=== PATIENT | female | born 1985 | race Caucasian/White ===

== ENCOUNTER 2018-02-10 13:28 | Emergency (ER) | payer MEDICARE, MEDICAID ==
[~2018-02-10] VITALS: Ht 157.5 cm; Wt 77.1 kg
[~2018-02-10 13:28] MED LIST: ACET12.5 PO; AMOX250S70 PO; PRD20T PO; TYLENOL #3 ELIXIR PO
--- NOTE | 2018-02-10 14:05 | ED Upper Extremity ---
General Chief Complaint: Upper Extremity Stated Complaint: L SHOULDER PAIN Nursing Triage Note: Patient advises shoulder pain x 2 days after exercising. She advises she has tried utilizing a heat pack and tramadol without improvement in pain. Nursing Sepsis Screen: No Definite Risk Source: patient Exam Limitations: no limitations History of Present Illness Date Seen by Provider: Feb 10, 2018 Time Seen by Provider: 14:05 Allergies and Home Medications Allergies Coded Allergies: hydrocodone (Verified Adverse Reaction, Mild, Gastric upset, 07/07/15) Home Medications [Tylenol #3 Elixir] ML, 1-2 TSP PO Q4H PRN for PAIN Prescribed by: SADIA COPE on 01/20/16 1200 Past Lknbyrg-Gcnoba-Bukcau Hx Patient Social History Alcohol Use: Denies Use Recreational Drug Use: No Smoking Status: Never a Smoker Recent Foreign Travel: No Contact w/Someone Who Travel: No Recent Infectious Disease Expo: No Physical Abuse: No Sexual Abuse: No Immunizations Up To Date Tetanus Booster (TDap): More than 5yrs Seasonal Allergies Seasonal Allergies: No Surgeries History of Surgeries: Yes (RT KNEE SCOPE, RT ANKLE TENDON X2) Surgeries: Orthopedic Respiratory History of Respiratory Disorde: No Cardiovascular History of Cardiac Disorders: No Neurological History of Neurological Disord: No Neurological Disorders: Cerebral Palsy Reproductive System Hx Reproductive Disorders: No Sexually Transmitted Disease: No HIV/AIDS: No Female Reproductive Disorders: Denies Gastrointestinal History of Gastrointestinal Di: No Musculoskeletal History of Musculoskeletal Dis: No Endocrine History of Endocrine Disorders: No HEENT Loss of Vision: Bilateral Cancer History of Cancer: No Psychosocial History of Psychiatric Problem: No Suicide Risk Score: 0 Integumentary History of Skin or Integumenta: No Blood Transfusions History of Blood Disorders: No Adverse Reaction to a Blood Tr: No Family Medical History Significant Family History: No Pertinent Family Hx Physical Exam Vital Signs Vital Signs - First Documented 02/10/18 13:40 Temp 98.4 Resp 14 B/P (MAP) 120/77 (91) Pulse Ox 98 O2 Delivery Room Air Capillary Refill : Less Than 3 Seconds Progress/Results/Core Measures Results/Orders My Orders Orders - KATIE KITCHEN Shoulder, Left, 3 Views (02/10/18 13:53) Vital Signs/I&O Vital Sign - Last 12Hours 02/10/18 13:40 Temp 98.4 Resp 14 B/P (MAP) 120/77 (91) Pulse Ox 98 O2 Delivery Room Air Blood Pressure Mean: 91 Departure Impression Impression: Primary Impression: Muscle strain of left shoulder Disposition: 01 HOME, SELF-CARE Condition: Improved Departure-Patient Inst. Decision time for Depature: 15:16 Referrals: NO,LOCAL PHYSICIAN (PCP) Primary Care Physician AMOS ROLAND MD Patient Instructions: Muscle Strain (DC) Add. Discharge Instructions: All discharge instructions reviewed with patient and/or family. Voiced understanding. Medications as directed. Tylenol over the counter as directed for pain. Motrin over the counter as directed for pain. Alternate ice packs and heating pads as needed for pain and spasm. Follow-up with your family practitioner or Dr. Roland if no improvement in symptoms within the next 7-10 days. Return to the emergency department for worsened symptoms or any other concerns. Scripts Prednisone (Prednisone) 20 Mg Tab 40 MG PO DAILY, #10 TAB 0 Refills ok to crush meds Prov: KATIE KITCHEN 02/10/18 Cyclobenzaprine HCl (Cyclobenzaprine HCl) 5 Mg Tablet 5 MG PO Q8H Y for SPASMS, #14 TAB 0 Refills Prov: KATIE KITCHEN 02/10/18 KATIE KITCHEN Feb 10, 2018 14:05
--- NOTE | 2018-02-10 14:25 | Diagnostic Imaging Report ---
Indication: Overuse injury. Left shoulder pain. Findings: Three views of the left shoulder shows no fracture, dislocation or other abnormality. Impression: Normal left shoulder. Dictated by: Dictated on workstation # [id number]
[2018-02-10] MEDS ORDERED: CYCL5TAB PO (15:20)
[2018-02-10] MEDS ORDERED: PRD20T PO (15:20)
[2018-02-10 15:47] VITALS: BP 120/77
== END 2018-02-10 15:46 | disposition home or self-care (01) ==
LOC: EDUNIT# 13:28 → ER 13:30
DX: S46.912A Strain of unspecified muscle, fascia and tendon at shoulder and upper arm level, left arm, initial encounter (principal); Z88.5 Allergy status to narcotic agent; X50.0XXA Overexertion from strenuous movement or load, initial encounter
CPT/HCPCS: 73030

== ENCOUNTER 2018-07-24 08:40 | Emergency (ER) | payer MEDICARE, MEDICAID ==
[~2018-07-24] VITALS: Ht 157.5 cm; Wt 72.6 kg
[~2018-07-24 08:40] MED LIST changes: +CYCL5TAB PO
--- NOTE | 2018-07-24 08:56 | ED Lower Extremity ---
General Stated Complaint: RT KNEE PAIN Source: patient, family Exam Limitations: no limitations History of Present Illness Date Seen by Provider: Jul 24, 2018 Time Seen by Provider: 08:45 Initial Comments Patient presents to ER by private conveyance with chief complaint that she is having some continued right knee pain. She tripped couple weeks ago on a hose and at [employer] parking lot and skinned up her knee. She's been cleaning 3 times a day with hydrogen peroxide and applying Neosporin. She states she's been using ibuprofen 100 mg tablets 5 those 2 or 3 times a day and says that did not help. She has a hard time taking pills that she uses chewable children' s version. She also is noting some swelling in her ankle for the past couple days. She has no history of clots nor does she take any medicines or follow with a primary care doctor. She has a history of CP. She's not having any shortness of breath chest pain cough hemoptysis, fevers or chills. Does not take any other medicines. She would like some tramadol for her pain. Allergies and Home Medications Allergies Coded Allergies: hydrocodone (Verified Adverse Reaction, Mild, Gastric upset, 07/07/15) Home Medications No Active Prescriptions or Reported Meds Patient Home Medication List Home Medication List Reviewed: Yes Review of Systems Constitutional: No chills, No diaphoresis, No fever, No malaise EENTM: No ear discharge, No ear pain Respiratory: cough (occ dry); No hemoptysis, No short of breath, No wheezing Cardiovascular: No chest pain, No palpitations Gastrointestinal: No abdominal pain, No constipation, No nausea, No vomiting Genitourinary: No discharge, No dysuria Past Dobmtqe-Lbbuuf-Vgnlxc Hx Patient Social History Alcohol Use: Denies Use Recreational Drug Use: No Smoking Status: Never a Smoker 2nd Hand Smoke Exposure: No Recent Foreign Travel: No Contact w/Someone Who Travel: No Recent Hopitalizations: No Immunizations Up To Date Tetanus Booster (TDap): Less than 5yrs Seasonal Allergies Seasonal Allergies: No Past Medical History Surgeries: Yes (RT KNEE SCOPE, RT ANKLE TENDON ) Orthopedic Respiratory: No Cardiac: No Neurological: Yes Cerebral Palsy Reproductive Disorders: No Female Reproductive Disorders: Denies Sexually Transmitted Disease: No HIV/AIDS: No Genitourinary: No Gastrointestinal: No Musculoskeletal: No Endocrine: No HEENT: No Loss of Vision: Bilateral Cancer: No Psychosocial: No Integumentary: No Blood Disorders: No Adverse Reaction/Blood Tranf: No Family Medical History No Pertinent Family Hx Physical Exam Vital Signs Vital Signs - First Documented 07/24/18 08:55 Temp 97.5 Pulse 106 Resp 18 B/P (MAP) 137/81 (99) Pulse Ox 98 Capillary Refill : Height, Weight, BMI Height: 5'2.00" Weight: 170lbs. 0.0oz. 77.448973ue; 25.96 BMI Method:Stated General Appearance: WD/WN, no apparent distress HEENT: PERRL/EOMI, pharynx normal Neck: non-tender, normal inspection Cardiovascular: normal peripheral pulses, regular rate, rhythm Respiratory: lungs clear, normal breath sounds, no respiratory distress, no accessory muscle use Gastrointestinal: non tender, soft Knees: left knee non-tender, left knee normal inspection; bilateral knee normal range of motion; left knee no evidence of injury; bilateral knee bone tenderness; right knee joint effusion (mild), right knee pain, right knee soft tissue tenderness, right knee swelling, right knee other (normal Ervin, anterior, posterior drawer test. The MCL and LCL ligaments are tight, normal examination. No evidence of acute ligament disruption.) Ankles: bilateral ankle non-tender; left ankle normal inspection; bilateral ankle normal range of motion; left ankle no evidence of injury; right ankle swelling Feet: bilateral foot non-tender, bilateral foot normal inspection, bilateral foot normal range of motion, bilateral foot no evidence of injury Neurologic/Psychiatric: no motor/sensory deficits, normal mood/affect, oriented x 3 Skin: normal color, warm/dry Progress/Results/Core Measures Results/Orders Lab Results Laboratory Tests Test 07/24/18 09:09 Range/Units White Blood Count 9.8 4.3-11.0 10^3/uL Red Blood Count 4.34 L 4.35-5.85 10^6/uL Hemoglobin 13.3 11.5-16.0 G/DL Hematocrit 40 35-52 % Mean Corpuscular Volume 92 80-99 FL Mean Corpuscular Hemoglobin 31 25-34 PG Mean Corpuscular Hemoglobin Concent 33 32-36 G/DL Red Cell Distribution Width 12.9 10.0-14.5 % Platelet Count 274 130-400 10^3/uL Mean Platelet Volume 10.7 H 7.4-10.4 FL Neutrophils (%) (Auto) 69 42-75 % Lymphocytes (%) (Auto) 21 12-44 % Monocytes (%) (Auto) 7 0-12 % Eosinophils (%) (Auto) 3 0-10 % Basophils (%) (Auto) 0 0-10 % Neutrophils # (Auto) 6.8 1.8-7.8 X 10^3 Lymphocytes # (Auto) 2.1 1.0-4.0 X 10^3 Monocytes # (Auto) 0.7 0.0-1.0 X 10^3 Eosinophils # (Auto) 0.3 0.0-0.3 10^3/uL Basophils # (Auto) 0.0 0.0-0.1 10^3/uL Sodium Level 138 135-145 MMOL/L Potassium Level 3.4 L 3.6-5.0 MMOL/L Chloride Level 107 98-107 MMOL/L Carbon Dioxide Level 23 21-32 MMOL/L Anion Gap 8 5-14 MMOL/L Blood Urea Nitrogen 12 7-18 MG/DL Creatinine 0.62 0.60-1.30 MG/DL Estimat Glomerular Filtration Rate > 60 BUN/Creatinine Ratio 19 Glucose Level 86 70-105 MG/DL Calcium Level 9.2 8.5-10.1 MG/DL Corrected Calcium 9.2 8.5-10.1 MG/DL Total Bilirubin 0.5 0.1-1.0 MG/DL Aspartate Amino Transf (AST/SGOT) 15 5-34 U/L Alanine Aminotransferase (ALT/SGPT) 24 0-55 U/L Alkaline Phosphatase 83 40-136 U/L C-Reactive Protein High Sensitivity 1.97 H 0.00-0.50 MG/DL Total Protein 6.7 6.4-8.2 GM/DL Albumin 4.0 3.2-4.5 GM/DL Serum Test, Qualitative NEGATIVE NEGATIVE My Orders Orders - RON KEENE Cbc With Automated Diff (07/24/18 08:54) Comprehensive Metabolic Panel (07/24/18 08:54) Hs C Reactive Protein (07/24/18 08:54) Hcg,Qualitative Serum (07/24/18 08:54) Vital Signs/I&O 07/24/18 08:55 Temp 97.5 Pulse 106 Resp 18 B/P (MAP) 137/81 (99) Pulse Ox 98 Progress Progress Note : Time: 09:55 Progress Note No evidence of cellulitis or DVT. Looks like normal healing wound and knee injury. She is able to walk on it. She has been counseled on appropriate wound care. We'll wrap her ankle and instruct her in rice therapy. Offered her pain medicine and she has requested just to get the prescription for tramadol outpatient. We have instructed her that we will send her Naprosyn but will be okay with a couple tramadol for breakthrough pain. Departure Impression Primary Impression: Sprain of knee Qualified Codes: S83.91XD - Sprain of unspecified site of right knee, subsequent encounter Disposition: HOME, SELF-CARE Condition: Stable Departure-Patient Inst. Decision time for Depature: 10:03 Referrals: NO,LOCAL PHYSICIAN (PCP/Family) Primary Care Physician Patient Instructions: Knee Sprain (DC) Add. Discharge Instructions: Rest the knee and keep it elevated above the level of your heart. Use the compression dressing for swelling. Stay active. Do the stretching exercises as demonstrated. Use Tylenol 1000 mg every 8 hours as needed. Start taking the Naprosyn 1 capsules twice a day for the next week or 2 for pain. If you have breakthrough pain not controlled with these then you can use the tramadol 1 tablet every 6 hours as needed. Follow up with primary care doctor if you're not seeing improvement in the next 2 weeks for referral to physical therapy. For your cough you can seed cone picker some Zyrtec/cetirizine and take one tablet daily for the next 2 weeks. Scripts Tramadol HCl (Tramadol HCl) 50 Mg Tablet 50 MG PO Q6H PRN for PAIN, #10 TAB 0 Refills Prov: RON KEENE 07/24/18 Naproxen (Naprosyn) 500 Mg Tablet 500 MG PO BID, #30 TAB 0 Refills Prov: RON KEENE 07/24/18 RON KEENE Jul 24, 2018 08:56
[2018-07-24 09:21] LABS: BASOPHILS % (AUTO) 0 % (0-10); EOSINOPHILS # (AUTO) 0.3 10^3/uL (0.0-0.3); EOSINOPHILS % (AUTO) 3 % (0-10); HEMATOCRIT 40 % (35-52); HEMOGLOBIN 13.3 G/DL (11.5-16.0); LYMPHOCYTES # (AUTO) 2.1 X 10^3 (1.0-4.0); LYMPHOCYTES % (AUTO) 21 % (12-44); MEAN CORPUSCULAR HEMOGLOBIN 31 PG (25-34); MEAN CORPUSCULAR HGB CONC 33 G/DL (32-36); MEAN CORPUSCULAR VOLUME 92 FL (80-99); MEAN PLATELET VOLUME 10.7 FL (7.4-10.4); MONOCYTES # (AUTO) 0.7 X 10^3 (0.0-1.0); MONOCYTES % (AUTO) 7 % (0-12); NEUTROPHILS # (AUTO) 6.8 X 10^3 (1.8-7.8); NEUTROPHILS % (AUTO) 69 % (42-75); PLATELET COUNT 274 10^3/uL (130-400); RED BLOOD COUNT 4.34 10^6/uL (4.35-5.85); RED CELL DISTRIBUTION WIDTH 12.9 % (10.0-14.5); WHITE BLOOD COUNT 9.8 10^3/uL (4.3-11.0)
--- OUTSIDE RECORDS SUMMARY | 2018-07-24 09:33 | XMS REPORT | Continuity of Care Document ---
Author Author [facility] Organization [facility] Address Unknown Phone Unavailable Allergies Active Description Code Type Severity Reaction Onset Reported/Identified Relationship to Patient Clinical Status Yes No Known Drug Allergies [id number] Drug Allergy Unknown N/A 02/18/2015 Yes hydrocodone [id number] Drug Allergy Mild Gastric upset 07/07/2015 Medications There is no data. Problems Date Dx Coded Attending Type Code Diagnosis Diagnosed By 04/17/2010 Ot 343.9 04/17/2010 Ot 729.5 04/23/2010 Ot 342.90 04/23/2010 Ot 343.9 04/23/2010 Ot V57.1 05/25/2012 Ot 843.9 05/25/2012 Ot E000.8 05/25/2012 Ot E009.0 05/25/2012 Ot E849.4 05/25/2012 Ot E927.0 05/25/2012 Ot V57.1 06/06/2012 Ot 843.8 06/06/2012 Ot E000.8 06/06/2012 Ot E009.0 06/06/2012 Ot E849.4 06/06/2012 Ot E928.9 06/06/2012 Ot V57.1 10/15/2013 ASUNCION ODOM, AMOS Brown Ot 781.3 10/15/2013 ASUNCION ODOM, AMOS Brown Ot 844.9 10/15/2013 ASUNCION ODOM, AMOS Brown Ot E000.8 10/15/2013 ASUNCION ODOM, AMOS Brown Ot E888.8 10/15/2013 ASUNCION ODOM, AMOS Brown Ot V57.1 02/18/2015 OMARI ODOM, MIRA Lemon Ot 784.2 02/25/2015 Ot 733.93 07/07/2015 BASSEM ODOM, HALLIE Villa Ot 873.41 07/07/2015 BASSEM ODOM, HALLIE Villa Ot E000.8 07/07/2015 BASSEM ODOM, HALLIE Villa Ot E849.0 07/07/2015 BASSEM ODOM, HALLIE Villa Ot E906.0 07/07/2015 BASSEM ODOM, HALLIE Villa Ot V06.1 01/20/2016 ASUNCION ODOM, AMOS Brown Ot M22.41 CHONDROMALACIA PATELLAE, RIGHT KNEE 02/10/2018 FIDELINA OCHOAKATIE Ot M25.512 PAIN IN LEFT SHOULDER 02/10/2018 FIDELINA OCHOAKATIE Ot S46.912A STRAIN UNSP MUSC[facility]FASC/TEND [facility] A 02/10/2018 FIDELINA OCHOA KATIE Britton Ot X50.0XXA OVEREXERTION FROM STRENUOUS MOVEMENT OR 02/10/2018 FIDELINA OCHOA KATIE Tobi Ot Z88.5 ALLERGY STATUS TO NARCOTIC AGENT STATUS 02/12/2018 FIDELINA OCHOA KATIE Tobi Ot M25.512 PAIN IN LEFT SHOULDER 02/12/2018 FIDELINA OCHOA KATIE Tobi Ot S46.912A STRAIN UNSP MUSC/FASC/TEND [facility] A 02/12/2018 FIDELINA OCHOA KATIE Tobi Ot X50.0XXA OVEREXERTION FROM STRENUOUS MOVEMENT OR 02/12/2018 FIDELINA OCHOA KATIE Tobi Ot Z88.5 ALLERGY STATUS TO NARCOTIC AGENT STATUS Procedures There is no data. Results There is no data. Encounters ACCT No. Visit Date/Time Discharge Status Pt. Type Provider Facility Loc./Unit Complaint [id number] 02/10/2018 13:30:00 02/10/2018 15:46:00 DIS Emergency KATIE COLBY [facility] ER L SHOULDER PAIN [id number] 01/20/2016 08:41:00 01/20/2016 13:05:00 DIS Outpatient AMOS ROLAND MD [facility] [id number] 01/14/2016 11:16:00 01/14/2016 23:59:59 CLS Outpatient AMOS ROLAND MD [facility] PREOP [id number] 07/07/2015 06:56:00 07/07/2015 08:04:00 DIS Emergency HALLIE LUEVANO MD [facility] ER [id number] 02/18/2015 19:32:00 02/18/2015 20:30:00 DIS Emergency OMARI ODOM, MIRA Lemon [facility] ER [id number] 10/15/2013 08:32:00 10/15/2013 08:59:00 DIS Outpatient AMOS ROLAND MD [facility] REHAB [id number] 06/06/2012 10:23:00 Document Registration [id number] 05/17/2012 08:02:00 Document Registration [id number] 05/12/2010 10:21:00 Document Registration [id number] 04/23/2010 09:09:00 Document Registration [id number] 04/17/2010 18:28:00 Document Registration [id number] 09/15/2016 08:56:15 09/15/2016 23:59:59 CLS Outpatient [id number] 07/07/2015 06:57:19 ACT Document Registration
[2018-07-24 09:47] LABS: ALANINE AMINOTRANSFERASE 24 U/L (0-55); ALKALINE PHOSPHATASE 83 U/L (40-136); BILIRUBIN,TOTAL 0.5 MG/DL (0.1-1.0); BUN/CREATININE RATIO 19; CALCIUM 9.2 MG/DL (8.5-10.1); CARBON DIOXIDE 23 MMOL/L (21-32); CHLORIDE 107 MMOL/L (98-107); CREATININE SERUM 0.62 MG/DL (0.60-1.30); GFR ESTIMATED > 60; GLUCOSE 86 MG/DL (70-105); POTASSIUM 3.4 MMOL/L (3.6-5.0); SODIUM 138 MMOL/L (135-145); TOTAL PROTEIN 6.7 GM/DL (6.4-8.2)
[2018-07-24] MEDS ORDERED: TRAM50TA2 PO (09:59)
[2018-07-24] MEDS ORDERED: NAPR-1071 PO (09:59)
[2018-07-24 10:09] VITALS: BP 124/78
== END 2018-07-24 10:09 | disposition home or self-care (01) ==
LOC: EDUNIT# 08:40 → ER 08:42
DX: S83.91XD Sprain of unspecified site of right knee, subsequent encounter (principal); M25.561 Pain in right knee; G80.9 Cerebral palsy, unspecified; Z88.5 Allergy status to narcotic agent; W18.40XD Slipping, tripping and stumbling without falling, unspecified, subsequent encounter; Y92.481 Parking lot as the place of occurrence of the external cause
CPT/HCPCS: 36415; 80053; 84703; 85025; 86141

== ENCOUNTER → 2018-08-24 | Outpatient (CLI) | payer MEDICARE, MEDICAID ==
[~2018-08-24] MED LIST changes: +CATHETER FLUSH 10 ML SYR IV PRN; +NAPR-1071 PO; +TRAM50TA2 PO
--- NOTE | 2018-08-24 14:01 | Diagnostic Imaging Report ---
INDICATION: Vomiting. TECHNIQUE: The patient was administered 5.1 mCi technetium 99m Choletec intravenously and imaging over the abdomen was performed. After 60 minutes, the patient ingested 1 can of Ensure and gallbladder ejection fraction was calculated. FINDINGS: There is homogeneous uptake of activity by the liver with prompt excretion of activity into the gallbladder and common duct. Normal passage of activity into the small bowel is seen. Gallbladder ejection fraction is slightly low at 30%. Normal values are 33% or greater. IMPRESSION: 1. No evidence of cystic duct or common bile duct obstruction. 2. Slightly low gallbladder ejection fraction of 30%. Dictated by: Dictated on workstation # [id number]
== END ==
LOC: CARD 09:26
PROVIDERS: ATTEND Surgery
DX: R11.11 Vomiting without nausea (principal)
CPT/HCPCS: 78227

== ENCOUNTER → 2018-10-22 | Outpatient (CLI) | payer MEDICARE, MEDICAID ==
[~2018-10-22] MED LIST changes: -CATHETER FLUSH 10 ML SYR IV PRN
--- NOTE | 2018-10-22 12:50 | Diagnostic Imaging Report ---
EXAMINATION: Magnetic resonance imaging of the right wrist without contrast DATE: October 22, 2018. COMPARISON: None. HISTORY: 33-year-old female, right wrist pain. TECHNIQUE: Magnetic Resonance Imaging sequences were performed of the wrist without contrast. FINDINGS: TRIANGULAR FIBROCARTILAGE COMPLEX: The triangular fibrocartilage disc, dorsal radioulnar ligament, volar radioulnar ligament, ulnolunate ligament, ulnotriquetral ligament, extensor carpi ulnaris tendon and sheath, meniscal homologue are grossly intact on non-arthrogram assessment. INTRINSIC LIGAMENTS: The scapholunate and lunotriquetral ligaments are grossly intact. JOINTS: The radiocarpal, intercarpal, and distal radioulnar joints are intact. There is no joint effusion. CARPAL TUNNEL: The flexor retinaculum is unremarkable. The flexor digitorum superficialis and profundus are intact. The median nerve is unremarkable. FLEXOR TENDONS: The flexor carpi ulnaris, flexor pollicis longus and carpi radialis are intact. EXTENSOR TENDONS: Radial side extensor tendons are intact including: extensor pollicis longus, extensor carpi radialis brevis, extensor carpi radialis longus, extensor pollicis brevis and abductor pollicis longus. The extensor carpi ulnaris, extensor digitorum, extensor digiti minimi and extensor indicis tendons are intact. BONE: The bones all have normal configuration. The bone marrow signal is within normal limits. Specifically, negative for fracture, osteomyelitis, osteonecrosis, or marrow replacing process. BURSAE AND SOFT TISSUES: The bursae and soft tissues surrounding the wrist are within normal limits. IMPRESSION: 1. Unremarkable MRI of the right wrist. Dictated by: Dictated on workstation # [id number]
== END ==
LOC: RAD 11:30
PROVIDERS: ATTEND Nurse Practitioner
DX: S66.39 Other injury of extensor muscle, fascia and tendon of other and unspecified finger at wrist and hand level (principal)
CPT/HCPCS: 73221

== ENCOUNTER 2019-03-23 10:43 | Emergency (ER) | payer MEDICARE, MEDICAID ==
[~2019-03-23] VITALS: Ht 157.5 cm; Wt 87.5 kg
--- NOTE | 2019-03-23 11:19 | ED EENT ---
History of Present Illness General Chief Complaint: Oral/Throat Problems Stated Complaint: SORE THROAT Nursing Triage Note: PT CO OF SORETHROAT STATES FEELS LIKE SOMETHING STUCK IN THROAT FOR A FEW DAYS Source: patient Exam Limitations: no limitations History of Present Illness Date Seen by Provider: March 23, 2019 Time Seen by Provider: 11:15 Initial Comments The patient is a 34-year-old white female who presents with complaints of a sore throat and difficulty in swallowing. She denies upper respiratory symptoms. She does note a bit of heartburn. She had her gallbladder removed several years ago. She is able to drink water without difficulty. She has not been taking elastic solids. She was able to eat mashed potatoes last night. Timing/Duration: abrupt Prearrival Treatment: no prearrival treatment Allergies and Home Medications Allergies Coded Allergies: hydrocodone (Verified Adverse Reaction, Mild, Gastric upset, 07/07/15) Home Medications Naproxen 500 Mg Tablet, 500 MG PO BID Prescribed by: RON KEENE on 07/24/18 0959 Tramadol HCl 50 Mg Tablet, 50 MG PO Q6H PRN for PAIN Prescribed by: RON KEENE on 07/24/18 0959 Patient Home Medication List Home Medication List Reviewed: Yes Review of Systems Review of Systems Constitutional: see HPI Eyes: No Symptoms Reported Ears: No Symptoms Reported Nose: no symptoms reported Mouth: no symptoms reported Throat: see HPI Respiratory: no symptoms reported Cardiovascular: no symptoms reported Gastrointestinal: no symptoms reported Musculoskeletal: no symptoms reported Skin: no symptoms reported Neurological: No Symptoms Reported Hematologic/Lymphatic: No Symptoms Reported Immunological/Allergic: no symptoms reported Past Dmsiijm-Qsczcs-Lykpjq Hx Patient Social History Alcohol Use: Denies Use Recreational Drug Use: No Smoking Status: Never a Smoker 2nd Hand Smoke Exposure: No Recent Foreign Travel: No Contact w/Someone Who Travel: No Recent Infectious Disease Expo: No Recent Hopitalizations: No Immunizations Up To Date Tetanus Booster (TDap): Less than 5yrs Seasonal Allergies Seasonal Allergies: No Past Medical History Surgeries: Yes (RT KNEE SCOPE, RT ANKLE TENDON ) Orthopedic Respiratory: No Cardiac: No Neurological: Yes Cerebral Palsy Reproductive Disorders: No Female Reproductive Disorders: Denies Sexually Transmitted Disease: No HIV/AIDS: No Genitourinary: No Gastrointestinal: No Musculoskeletal: No Endocrine: No HEENT: No Loss of Vision: Bilateral Cancer: No Psychosocial: No Integumentary: No Blood Disorders: No Adverse Reaction/Blood Tranf: No Family Medical History No Pertinent Family Hx Physical Exam Vital Signs Vital Signs - First Documented 03/23/19 10:47 Temp 98.1 Pulse 100 Resp 20 B/P (MAP) 142/82 (102) Height, Weight, BMI Height: 5'2.00" Weight: 193lbs. 0.0oz. 87.851108zj; 25.96 BMI Method:Stated General Appearance: WD/WN, no apparent distress Eyes: bilateral eye normal inspection Nose: normal inspection Mouth/Throat: normal mouth inspection, pharynx normal Neck: non-tender, full range of motion, supple, normal inspection Cardiovascular: normal peripheral pulses, regular rate, rhythm, no edema, no gallop, no JVD, no murmur Respiratory: chest non-tender, lungs clear, normal breath sounds, no respiratory distress, no accessory muscle use Gastrointestinal: normal bowel sounds, non tender, soft, no organomegaly, no pulsatile mass, tenderness, spleenomegaly Progress/Results/Core Measures Results/Orders Vital Signs/I&O 03/23/19 10:47 Temp 98.1 Pulse 100 Resp 20 B/P (MAP) 142/82 (102) Blood Pressure Mean: 102 Departure Communication (Admissions) As we were unable to do a barium swallow without a radiologist I spoke to Dr. Lindsay who is the surgeon on-call. The patient has been swallowing liquids therefore he requested that I continue her on a liquid diet and speak to the switch house operator to schedule an EGD on Monday. This was done and I was given 1130 as the time. The patient will be instructed to continue the clear liquid diet and to arrive at 1034 check in. Impression Primary Impression: dysphagia Disposition: HOME, SELF-CARE Condition: Stable/Unchanged Departure-Patient Inst. Decision time for Depature: 11:42 Referrals: WILLY PRUITT MD (PCP/Family) Primary Care Physician Add. Discharge Instructions: All discharge instructions reviewed with patient and/or family. Voiced understanding. Continue full liquid diet. Take this in repeated small amounts. Take nothing by mouth after midnight on Monday. Report to [facility] Monday at approximately 1034 a scope at approximately [address] Lindsay. BERNARD MEJÍA MD March 23, 2019 11:19
[2019-03-23 11:51] VITALS: BP 142/82
[2019-03-25] MEDS ORDERED: SUCR1TAB36 PO (12:20)
[2019-03-25] MEDS ORDERED: PANT40TA2 PO (12:20)
== END 2019-03-23 11:52 | disposition home or self-care (01) ==
LOC: EDUNIT# 10:43 → ER 10:44
DX: R13.10 Dysphagia, unspecified (principal); G80.9 Cerebral palsy, unspecified; Z88.5 Allergy status to narcotic agent

== ENCOUNTER 2019-03-25 10:30 | Day surgery (SDC) | payer MEDICARE, MEDICAID ==
[~2019-03-25] VITALS: Ht 157.5 cm; Wt 87.5 kg
[2019-03-25] MEDS ORDERED: proPOfol 200 MG/20 ML (DIPRIVAN) VIAL IV ONE (11:05)
[2019-03-25] MEDS ORDERED: MIDAZOLAM 2 MG/2 ML (VERSED) VIAL ONE ×2 (11:06→11:57)
[2019-03-25] MEDS ORDERED: LACTATED RINGERS 1,000 ML IV STA (11:08)
[2019-03-25] MEDS ORDERED: HURRICAINE EXT TUBE (BENZOCAINE) XX PRN (11:15)
[2019-03-25] MEDS ORDERED: LACTATED RINGERS 1,000 ML IV ONE (11:27)
[2019-03-25 11:31] VITALS: BP 123/79
--- NOTE | 2019-03-25 11:32 | History & Physical-Surgical ---
History of Present Illness History of Present Illness Reason for visit/HPI Patient is a 34 year old female with a chief complaint of dysphagia. She states that this began all of the sudden one week ago with a sensation of "things being stuck". She says that both solids and liquids give her this sensation and that it will cause her to spit things up. Occasionally this has also caused her to vomit. For this last week, this has happened consistently with all food or drink. She notes that food and drink make it worse but that not eating or drinking reduces the sensation. Her PCP told her to try mylanta which did not help her symptoms. She has not experienced anything like this in the past. She denies shortness of breath, cough, congestion, palpitations, weakness, subjective fever, or fatigue. Patient was seen in the emergency department this last weekend, was tolerating liquids at that time. Instructed to stay on liquids until having scope done today. Date of Admission 03/25/2019 Date Seen by a Provider: March 25, 2019 Time Seen by a Provider: 11:25 I consulted on this patient on 03/25/19 11:25 Attending Physician Evan Lindsay DO Admitting Physician Glory Holt MD Consult Allergies and Home Medications Allergies Coded Allergies: hydrocodone (Verified Adverse Reaction, Mild, Gastric upset, 07/07/15) Home Medications Pantoprazole Sodium 40 Mg Tablet.dr, 40 MG PO DAILY Prescribed by: EVAN LINDSAY on 03/25/19 1220 Sucralfate 1 Gm Tablet, 1 GM PO QID Prescribed by: EVAN LINDSAY on 03/25/19 1220 Patient Home Medication List Home Medication List Reviewed: Yes Past Ghxefbs-Wzakpi-Plnhqf Hx Patient Social History Alcohol Use: Denies Use Recreational Drug Use: No Smoking Status: Never a Smoker 2nd Hand Smoke Exposure: No Recent Foreign Travel: No Contact w/Someone Who Travel: No Recent Hopitalizations: No Immunizations Up To Date Tetanus Booster (TDap): Less than 5yrs Seasonal Allergies Seasonal Allergies: No Surgeries History of Surgeries: Yes (RT KNEE SCOPE, RT ANKLE TENDON ) Surgeries: Orthopedic Respiratory History of Respiratory Disorde: No Cardiovascular History of Cardiac Disorders: No Neurological History of Neurological Disord: Yes Neurological Disorders: Cerebral Palsy Reproductive System Hx Reproductive Disorders: No Sexually Transmitted Disease: No HIV/AIDS: No Female Reproductive Disorders: Denies Genitourinary History of Genitourinary Disor: No Gastrointestinal History of Gastrointestinal Di: No Musculoskeletal History of Musculoskeletal Dis: No Endocrine History of Endocrine Disorders: No HEENT History of HEENT Disorders: No Loss of Vision: Bilateral Cancer History of Cancer: No Psychosocial History of Psychiatric Problem: No Integumentary History of Skin or Integumenta: No Blood Transfusions History of Blood Disorders: No Adverse Reaction to a Blood Tr: No Reviewed Nursing Assessment Reviewed/Agree w Nursing PMH: Yes Family Medical History Significant Family History: No Pertinent Family Hx Review of Systems Constitutional: no symptoms reported EENTM: throat pain Respiratory: no symptoms reported Cardiovascular: no symptoms reported Gastrointestinal: dysphagia Genitourinary: no symptoms reported Musculoskeletal: no symptoms reported Skin: no symptoms reported Psychiatric/Neurological: No Symptoms Reported Physical Exam Vital Signs Vital Signs - First Documented 03/25/19 03/25/19 11:31 12:10 Temp 98.2 Pulse 102 Resp 20 B/P (MAP) 123/79 (94) Pulse Ox 100 O2 Delivery Room Air O2 Flow Rate 2 Capillary Refill : Height, Weight, BMI Height: 5'2.00" Weight: 193lbs. 0.0oz. 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
[2019-03-25] MEDS ORDERED: HURRICAINE EXT TUBE (BENZOCAINE) ONE (12:15)
[2019-03-25] MEDS ORDERED: PANT40TA2 PO (12:20)
[2019-03-25] MEDS ORDERED: SUCR1TAB36 PO (12:20)
--- NOTE | 2019-03-25 12:21 | Discharge Inst-Simple/Standard ---
Discharge Inst-Standard Discharge Medications New, Converted or Re-Newed RX: Transmitted to Pharmacy Patient Instructions/Follow Up Plan of Care/Instructions/FU: 2 weeks Neftali Activity as Tolerated: Yes Discharge Diet: Liquid Diet (for 2 days then advance as tolerates.) EVAN BUTLER DO March 25, 2019 12:21
--- NOTE | 2019-03-25 12:22 | Progress Note-Post Operative ---
Post-Operative Progess Note Surgeon (s)/Corrections Specialist (s) Surgeon EVAN BUTLER DO Corrections Specialist: na Pre-Operative Diagnosis dysphagia Post-Operative Diagnosis hiatal hernia sliding, mucosal change cardia of stomach, gastric polyps, Procedure & Operative Findings Date of Procedure 03/25/19 Procedure Performed/Findings egd c biopsies Anesthesia Type per customer orders clerk Estimated Blood Loss Estimated blood loss (mL): none Specimens/Packing Specimens Removed antrum, cardia, ge EVAN BUTLER DO March 25, 2019 12:22
[2019-03-25 12:25] VITALS: BP 124/78
[2019-03-25 12:50] VITALS: BP 127/87
[2019-03-25 12:55] VITALS: BP 127/87
--- OUTSIDE RECORDS SUMMARY | 2019-03-25 13:06 | XMS REPORT | Continuity of Care Document ---
Author Organization Unknown Address Unknown Allergies Active Description Code Type Severity Reaction Onset Reported/Identified Relationship to Patient Clinical Status Yes HYDROCODONE-ACETAMINOPHEN UNKNOWN UNKNOWN Yes No Known Drug Allergies [id number] Drug Allergy Unknown N/A 02/18/2015 Yes hydrocodone [id number] Drug Allergy Mild Gastric upset 07/07/2015 Medications Medication Packaging Start Date Stop Date Route Dosage Sig LACTATED RINGERS 1000CC IV BAG INJ ml 08/22/2018 08/29/2018 CONTINUOUSEVERY 0 Hour KETOROLAC VIAL INJ 30 MG/CC (TORADOL VIAL) MG 09/02/2018 09/02/2018 PRN ONCE FENTANYL INJ 100 MCG/2CC VIAL MCG 09/02/2018 09/02/2018 ONCE&1827 LACTATED RINGERS 1000CC IV BAG INJ ml 09/12/2018 09/19/2018 CONTINUOUSEVERY 0 Hour FENTANYL INJ 100 MCG/2CC VIAL MCG 09/12/2018 09/12/2018 ONCE&0730 CEFAZOLIN VIAL INJ 1 GM (ANCEF) GM 09/12/2018 09/12/2018 ONCE&0730 FENTANYL INJ 100 MCG/2CC VIAL MCG 09/12/2018 09/12/2018 ONCE&0932 OXYCODONE 5MG/APAP 325MG TAB(PERCOCET-5) TAB 09/12/2018 09/12/2018 PRN ONCE Problems Date Dx Coded Attending Type Code Diagnosis Diagnosed By 04/17/2010 Ot 343.9 04/17/2010 Ot 729.5 04/23/2010 Ot 342.90 04/23/2010 Ot 343.9 04/23/2010 Ot V57.1 05/25/2012 Ot 843.9 05/25/2012 Ot E000.8 05/25/2012 Ot E009.0 05/25/2012 Ot E849.4 05/25/2012 Ot E927.0 05/25/2012 Ot V57.1 06/06/2012 Ot 843.8 06/06/2012 Ot E000.8 06/06/2012 Ot E009.0 06/06/2012 Ot E849.4 06/06/2012 Ot E928.9 06/06/2012 Ot V57.1 10/15/2013 AMOS ROLAND MD Ot 781.3 LACK OF COORDINATION 10/15/2013 AMOS ROLAND MD Ot 844.9 SPRAIN OF KNEE LEG NOS 10/15/2013 AMOS ROLAND MD Ot E000.8 OTHER EXTERNAL CAUSE STATUS 10/15/2013 AMOS ROLAND MD Ot E888.8 FALL NEC 10/15/2013 AMOS ROLAND MD Ot V57.1 PHYSICAL THERAPY NEC 02/18/2015 OMARI ODOM, MIRA Lemon Ot 784.2 SWELLING IN HEAD NECK 02/25/2015 Ot 733.93 07/07/2015 BASSEM ODOM, HALLIE Villa Ot 873.41 OPEN WOUND OF CHEEK 07/07/2015 BASSEM ODOM, HALLIE Villa Ot E000.8 OTHER EXTERNAL CAUSE STATUS 07/07/2015 BASSEM ODOM, HALLIE Villa Ot E849.0 ACCIDENT IN HOME 07/07/2015 BASSEM ODOM, HALLIE Villa Ot E906.0 DOG BITE 07/07/2015 BASSEM ODOM, HALLIE Villa Ot V06.1 [id number], COMBINED [ 01/20/2016 ASUNCION ODOM, AMOS Brown Ot M22.41 CHONDROMALACIA PATELLAE, RIGHT KNEE 02/10/2018 KATIE COLBY Ot M25.512 PAIN IN LEFT SHOULDER 02/10/2018 KATIE COLBY Ot S46.912A STRAIN [facility] A 02/10/2018 KATIE COLBY Ot X50.0XXA OVEREXERTION FROM STRENUOUS MOVEMENT OR 02/10/2018 KATIE COLBY Ot Z88.5 ALLERGY STATUS TO NARCOTIC AGENT STATUS 02/12/2018 KATIE COLBY Ot M25.512 PAIN IN LEFT SHOULDER 02/12/2018 KATIE COLBY Ot S46.912A STRAIN [facility] AT [facility]/ A 02/12/2018 FIDELINA PA, KATIE L Ot X50.0XXA OVEREXERTION FROM STRENUOUS MOVEMENT OR 02/12/2018 KATIE COLBY Ot Z88.5 ALLERGY STATUS TO NARCOTIC AGENT STATUS 07/17/2018 LINDSAY, KATIE DRILL OPERATOR Ot G80.9 CEREBRAL PALSY, UNSPECIFIED 07/17/2018 LINDSAY, KATIE DRILL OPERATOR Ot M25.561 PAIN IN RIGHT KNEE 07/17/2018 LINDSAY, KATIE DRILL OPERATOR Ot S80.01XA CONTUSION OF RIGHT KNEE, INITIAL ENCOUNT 07/17/2018 LINDSAY, KATIE DRILL OPERATOR Ot W01.0XXA FALL SAME LEV FROM SLIP/TRIP W/O STRIKE 07/17/2018 LINDSAY, KATIE DRILL OPERATOR Ot Y92.[address] OF OCCURRENCE O 07/17/2018 LINDSAY, KATIE DRILL OPERATOR Ot Z88.5 ALLERGY STATUS TO NARCOTIC AGENT STATUS 07/19/2018 LINDSAY, KATIE DRILL OPERATOR Ot G80.9 CEREBRAL PALSY, UNSPECIFIED 07/19/2018 LINDSAY, KATIE DRILL OPERATOR Ot M25.561 PAIN IN RIGHT KNEE 07/19/2018 LINDSAY, KATIE DRILL OPERATOR Ot S80.01XA CONTUSION OF RIGHT KNEE, INITIAL ENCOUNT 07/19/2018 LINDSAY, KATIE DRILL OPERATOR Ot W01.0XXA FALL SAME LEV FROM SLIP/TRIP W/O STRIKE 07/19/2018 LINDSAY, KATIE DRILL OPERATOR Ot Y92.[address] OF OCCURRENCE O 07/19/2018 LINDSAY, KATIE DRILL OPERATOR Ot Z88.5 ALLERGY STATUS TO NARCOTIC AGENT STATUS 07/24/2018 RON KEENE MD Ot G80.9 CEREBRAL PALSY, UNSPECIFIED 07/24/2018 RON KEENE MD Ot M25.561 PAIN IN RIGHT KNEE 07/24/2018 RON KEENE MD Ot S83.91XD SPRAIN OF UNSPECIFIED SITE OF RIGHT KNEE 07/24/2018 RON KEENE MD Ot W18.40XD SLIPPING, TRIPPING AND STUMBLING W/O FAL 07/24/2018 RON KEEEN MD Ot Y92.[address] OF OCCURRENCE O 07/24/2018 RON KEENE MD Ot Z88.5 ALLERGY STATUS TO NARCOTIC AGENT STATUS 07/24/2018 ASUNCION ODOM, AMOS Brown Ot M94.261 CHONDROMALACIA, RIGHT KNEE 07/24/2018 ASUNCION ODOM, AMOS Brown Ot Z01.818 ENCOUNTER FOR OTHER PREPROCEDURAL EXAMIN 07/24/2018 MAOS ROLAND MD Ot Z11.2 ENCOUNTER FOR SCREENING FOR OTHER BACTER 07/26/2018 RON KEENE MD Ot G80.9 CEREBRAL PALSY, UNSPECIFIED 07/26/2018 RON KEENE MD Ot M25.561 PAIN IN RIGHT KNEE 07/26/2018 RON KEENE MD Ot S83.91XD SPRAIN OF UNSPECIFIED SITE OF RIGHT KNEE 07/26/2018 RON KEENE MD Ot W18.40XD SLIPPING, TRIPPING AND STUMBLING W/O FAL 07/26/2018 RON KEENE MD Ot Y92.[address] OF OCCURRENCE O 07/26/2018 RON KEENE MD, Ot Z88.5 ALLERGY STATUS TO NARCOTIC AGENT STATUS 08/20/2018 W 727.09 OTHER SYNOVITIS AND TENOSYNOVITIS 08/20/2018 W M65.131 OTHER INFECTIVE (TENO)SYNOVITIS, RIGHT WRIST 08/22/2018 Vicente Padilla W 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, UNSPECIFIED 08/22/2018 Vicente Padilla W 530.81 ESOPHAGEAL REFLUX 08/22/2018 Vicente Padilla W 535.50 UNSPECIFIED GASTRITIS AND GASTRODUODENITIS, WITHOUT MENTION OF HEMORRHAGE 08/22/2018 Vicente Padilla W 536.2 PERSISTENT VOMITING 08/22/2018 Vicente Padilla W 552.3 DIAPHRAGMATIC HERNIA WITH OBSTRUCTION 08/22/2018 Vicente Padilla W G80.9 CEREBRAL PALSY, UNSPECIFIED 08/22/2018 Vicente Padilla W K21.9 GASTRO-ESOPHAGEAL REFLUX DISEASE WITHOUT ESOPHAGITIS 08/22/2018 Vicente Padilla W K29.60 OTHER GASTRITIS WITHOUT BLEEDING 08/22/2018 Vicente Padilla W K44.9 DIAPHRAGMATIC HERNIA WITHOUT OBSTRUCTION OR GANGRENE 08/22/2018 Vicente Padilla W R11.10 VOMITING, UNSPECIFIED 08/28/2018 VICENTE PADILLA DO Ot R11.11 VOMITING WITHOUT NAUSEA 09/02/2018 Emiliano Mercado 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, UNSPECIFIED 09/02/2018 Emiliano Mercado 789.02 ABDOMINAL PAIN, LEFT UPPER QUADRANT 09/02/2018 Emiliano Mercado G80.9 CEREBRAL PALSY, UNSPECIFIED 09/02/2018 Emiliano Mercado R10.12 LEFT UPPER QUADRANT PAIN 09/12/2018 LizBessietammiescott W 575.11 CHRONIC CHOLECYSTITIS 09/12/2018 Vicente Padilla W K81.1 CHRONIC CHOLECYSTITIS 09/17/2018 LIZ VICENTE NAM Ot R11.11 VOMITING WITHOUT NAUSEA 09/25/2018 W 727.09 OTHER SYNOVITIS AND TENOSYNOVITIS 09/25/2018 W M65.131 OTHER INFECTIVE (TENO)SYNOVITIS, RIGHT WRIST 09/28/2018 LIZ DO BESSIERADHA Ot R11.11 VOMITING WITHOUT NAUSEA 10/23/2018 JEREMY LOZANO Ot S66.396S INJ EXTN MUSC/FASC/TEND R LITTLE FINGER 11/17/2018 JEREMY LOZANO DRILL OPERATOR Ot S66.396S INJ EXTN MUSC/FASC/TEND R LITTLE FINGER 02/05/2019 WILLY PRUITT 783.1 ABNORMAL WEIGHT GAIN 02/05/2019 WILLY PRUITT 787.01 NAUSEA WITH VOMITING 02/05/2019 WILLY PRUITT R11.2 NAUSEA WITH VOMITING, UNSPECIFIED 02/05/2019 WILLY PRUITT R63.5 ABNORMAL WEIGHT GAIN 02/05/2019 WILLY PRUITT V70.0 ROUTINE GENERAL MEDICAL EXAMINATION AT A HEALTH CARE FACILITY 02/05/2019 WILLY PRUITT Z00.00 ENCOUNTER FOR GENERAL ADULT MEDICAL EXAMINATION WITHOUT ABNORMAL FINDINGS 02/05/2019 WILLY PRUITT 783.1 ABNORMAL WEIGHT GAIN 02/05/2019 WILLY PRUITT 787.01 NAUSEA WITH VOMITING 02/05/2019 WILLY PRUITT R11.2 NAUSEA WITH VOMITING, UNSPECIFIED 02/05/2019 WILLY PRUITT R63.5 ABNORMAL WEIGHT GAIN 02/05/2019 WILLY PRUITT V70.0 ROUTINE GENERAL MEDICAL EXAMINATION AT A HEALTH CARE FACILITY 02/05/2019 WILLY PRUITT Z00.00 ENCOUNTER FOR GENERAL ADULT MEDICAL EXAMINATION WITHOUT ABNORMAL FINDINGS Procedures There is no data. Results Test Result Range Complete blood count (CBC) with automated white blood cell (WBC) differential - 07/24/18 09:09 Blood leukocytes automated count (number/volume) 9.8 10*3/uL 4.3-11.0 Blood erythrocytes automated count (number/volume) 4.34 10*6/uL 4.35-5.85 Venous blood hemoglobin measurement (mass/volume) 13.3 g/dL 11.5-16.0 Blood hematocrit (volume fraction) 40 % 35-52 Automated erythrocyte mean corpuscular volume 92 [foz_us] 80-99 Automated erythrocyte mean corpuscular hemoglobin (mass per erythrocyte) 31 pg 25-34 Automated erythrocyte mean corpuscular hemoglobin concentration measurement ( mass/volume) 33 g/dL 32-36 Automated erythrocyte distribution width ratio 12.9 % 10.0-14.5 Automated blood platelet count (count/volume) 274 10*3/uL 130-400 Automated blood platelet mean volume measurement 10.7 [foz_us] 7.4-10.4 Automated blood neutrophils/100 leukocytes 69 % 42-75 Automated blood lymphocytes/100 leukocytes 21 % 12-44 Blood monocytes/100 leukocytes 7 % 0-12 Automated blood eosinophils/100 leukocytes 3 % 0-10 Automated blood basophils/100 leukocytes 0 % 0-10 Blood neutrophils automated count (number/volume) 6.8 10*3 1.8-7.8 Blood lymphocytes automated count (number/volume) 2.1 10*3 1.0-4.0 Blood monocytes automated count (number/volume) 0.7 10*3 0.0-1.0 Automated eosinophil count 0.3 10*3/uL 0.0-0.3 Automated blood basophil count (count/volume) 0.0 10*3/uL 0.0-0.1 Serum or plasma choriogonadotropin ( test) detection - 07/24/18 09:09 Serum or plasma choriogonadotropin ( test) detection NEGATIVE NEGATIVE Comprehensive metabolic panel - 07/24/18 09:09 Serum or plasma sodium measurement (moles/volume) 138 mmol/L 135-145 Serum or plasma potassium measurement (moles/volume) 3.4 mmol/L 3.6-5.0 Serum or plasma chloride measurement (moles/volume) 107 mmol/L 98-107 Carbon dioxide 23 mmol/L 21-32 Serum or plasma anion gap determination (moles/volume) 8 mmol/L 5-14 Serum or plasma urea nitrogen measurement (mass/volume) 12 mg/dL 7-18 Serum or plasma creatinine measurement (mass/volume) 0.62 mg/dL 0.60-1.30 Serum or plasma urea nitrogen/creatinine mass ratio 19 NRG Serum or plasma creatinine measurement with calculation of estimated glomerular filtration rate > NRG Serum or plasma glucose measurement (mass/volume) 86 mg/dL 70-105 Serum or plasma calcium measurement (mass/volume) 9.2 mg/dL 8.5-10.1 Serum or plasma total bilirubin measurement (mass/volume) 0.5 mg/dL 0.1-1.0 Serum or plasma alkaline phosphatase measurement (enzymatic activity/volume) 83 U/L 40-136 Serum or plasma aspartate aminotransferase measurement (enzymatic activity/ volume) 15 U/L 5-34 Serum or plasma alanine aminotransferase measurement (enzymatic activity/volume ) 24 U/L 0-55 Serum or plasma protein measurement (mass/volume) 6.7 g/dL 6.4-8.2 Serum or plasma albumin measurement (mass/volume) 4.0 g/dL 3.2-4.5 CALCIUM CORRECTED 9.2 mg/dL 8.5-10.1 Serum or plasma C reactive protein measurement (mass/volume) - 07/24/18 09:09 Serum or plasma C reactive protein measurement (mass/volume) 1.97 mg /dL 0.00-0.50 Protime - 08/17/18 11:07 INR 1.1 1.0-4.0 Protime 12.7 Sec 9.9-12.8 Test-Urine - 08/22/18 08:07 Preg Test-U Negative Negative Comprehensive Metabolic Panel - 09/02/18 18:20 Albumin 4.2 g/dL 3.6-5.1 ALP 89 U/L 35-130 ALT 17 U/L 6-45 Anion Gap 15 6-14 AST 15 U/L 2-40 BUN 11 mg/dL 5-25 Calcium 9.3 mg/dL 8.3-10.4 Chloride 106 mmol/L 95-114 CO2 24 mEq/L 22-33 Creat 0.72 mg/dL 0.50-1.50 eGFR 94 mL/min/1.73m2 >59 Globulin 3.0 g/dL 2.3-3.5 Glucose 105 mg/dL 70-110 Osmo 291 280-295 Potassium 3.7 mmol/L 3.5-5.3 Sodium 141 mmol/L 134-148 TBil 0.3 mg/dL 0.2-1.2 TP 7.2 g/dL 6.0-8.3 Lipase - 09/02/18 18:20 Lipase 41 U/L 7-59 Test-Serum - 09/02/18 18:20 Preg Test-S Negative Negative Test-Serum - 09/12/18 07:10 Preg Test-S Negative Negative MRSA Screen - 09/12/18 07:13 FINAL CULTURE RESULTS MRSA Negative Nasal Culture MEDIA PLATED Setup at 07:17 on 09/12/2018 Surgical Pathology - 09/12/18 09:00 Surg Path Sent to [facility] Encounters ACCT No. Visit Date/Time Discharge Status Pt. Type Provider Facility Loc./Unit Complaint [id number] 10/22/2018 11:30:00 10/22/2018 23:59:59 CLS Outpatient JEREMY LOZANO [facility] RAD INJURY OF EXTENSOR MUSCLE FASCIA [id number] 08/24/2018 09:26:00 08/24/2018 23:59:59 CLS Outpatient VICENTE PADILLA DO [facility] CARD VOMITING [id number] 07/24/2018 08:42:00 07/24/2018 10:09:00 DIS Emergency RON KEENE MD [facility] ER RT KNEE PAIN [id number] 07/17/2018 18:52:00 07/17/2018 19:34:00 DIS Emergency KATIE MONTOYA [facility] ER R KNEE INJ, FALL [id number] 02/10/2018 13:30:00 02/10/2018 15:46:00 DIS Emergency KATIE COLBY [facility] ER L SHOULDER PAIN [id number] 01/20/2016 08:41:00 01/20/2016 13:05:00 DIS Outpatient ASUNCION ODOM, AMOS Brown [facility] SDC RIGHT KNEE CHONDROMALASIA [id number] 01/14/2016 11:16:00 01/14/2016 23:59:59 CLS Outpatient ASUNCION ODOM, AMOS Brown [facility] PREOP RIGHT KNEE CHONDROMALASIA [id number] 07/07/2015 06:56:00 07/07/2015 08:04:00 DIS Emergency BASSEM ODOM, HALLIE Villa [facility] ER DOG BITE [id number] 02/18/2015 19:32:00 02/18/2015 20:30:00 DIS Emergency OMARI ODOM, MIRA Lemon [facility] ER FACIAL SWELLING [id number] 10/15/2013 08:32:00 10/15/2013 08:59:00 DIS Outpatient ASUNCION ODOM, AMOS Brown [facility] REHAB R KNEE STRAIN WITH GAIT DISTURBANCE [id number] 06/06/2012 10:23:00 Document Registration [id number] 05/17/2012 08:02:00 Document Registration [id number] 05/12/2010 10:21:00 Document Registration [id number] 04/23/2010 09:09:00 Document Registration [id number] 04/17/2010 18:28:00 Document Registration [id number] 09/12/2018 06:48:00 Document Registration [id number] 09/15/2016 08:56:15 09/15/2016 23:59:59 CLS Outpatient [id number] 07/07/2015 06:57:19 ACT Document Registration [id number] 02/05/2019 10:56:00 02/05/2019 23:59:00 DIS Outpatient WILLY PRUITT [id number] 09/12/2018 06:48:00 09/12/2018 10:22:00 DIS Outpatient Vicente Padilla [id number] 09/02/2018 18:11:00 09/02/2018 20:03:[address] [facility] [place] [place] [id number] 08/22/2018 07:03:00 08/22/2018 10:27:00 DIS Outpatient Vicente Padilla [id number] 08/21/2018 08:51:00 08/21/2018 23:59:00 DIS Outpatient Vicente Padilla [id number] 08/17/2018 10:50:00 08/17/2018 23:59:00 DIS Outpatient Vicente Padilla [id number] 08/21/2018 09:34:38 Document Registration [id number] 08/13/2018 14:01:15 Document Registration
--- NOTE | 2019-03-26 01:39 | OPERATIVE REPORT ---
DATE OF SERVICE: 03/25/2019 PREOPERATIVE DIAGNOSIS: Dysphagia. POSTOPERATIVE DIAGNOSES: Sliding hiatal hernia, mucosal change of the cardia of the stomach and gastric polyps. PROCEDURE: EGD with biopsy. SURGEON: Evan Lindsay DO. ANESTHESIA: Per [employer] FORCES MEDICAL SERGEANT. ESTIMATED BLOOD LOSS: None. COMPLICATIONS: None. SPECIMENS: Antrum, cardia and GE junction. INDICATIONS: The patient is a 34-year-old female, who went to the emergency department due to the dysphagia. She was able to keep liquids down, but difficulty with solids at times. She understands risks and benefits of the procedure and wished to proceed with the procedure. Consent was signed in the chart. PROCEDURE: The patient was taken to the endoscopy suite and placed in the left lateral recumbent position. Timeout was performed. Scope was inserted in the mouth, down the esophagus, stomach and into the duodenum without difficulty. There were no polyps, masses or ulcerations of the duodenum. Scope was slowly retracted back into the stomach where it was further insufflated. No polyps, masses or ulcerations within the antrum. No erythematous changes. Biopsy of the antrum was obtained. Scope was retroflexed just noting a couple of small benign appearing polyps. Also, there was a mucosal change in the cardia, which was biopsied. The patient had a moderate sliding hiatal hernia. No other pathology was noted. Scope was returned to its normal position and slowly withdrawn to the distal esophagus, some very minute erythematous changes, biopsy of the GE junction was obtained. Scope was then slowly retracted back noting no other pathology. The patient tolerated the procedure well without any complications. She was taken to the recovery room in stable condition. The patient was recommended starting Protonix and Carafate. Clear liquid diet, advance as tolerated. RECOMMENDATIONS: The patient will follow up in approximately two weeks. Any issues before that, will be seen at that time. Job ID: [id number] DocumentID: [id number] Dictated Date: 03/25/2019 17:49:33 Sanitation Worker Cleaning Equipment Date: 03/26/2019 01:39:07 Dictated By: EVAN LINDSAY DO
== END 2019-03-25 12:56 | disposition home or self-care (01) ==
LOC: ENDO 10:30
PROVIDERS: ATTEND Surgery
DX: K31.7 Polyp of stomach and duodenum (principal); K21.0 Gastro-esophageal reflux disease with esophagitis; K44.9 Diaphragmatic hernia without obstruction or gangrene; Z88.5 Allergy status to narcotic agent

== ENCOUNTER → 2020-03-23 | Outpatient (CLI) | payer MEDICARE, MEDICAID ==
[~2020-03-23] MED LIST changes: +BARIUM for suspension 96% w/w (Vanilla Silq Medium Density) PO ONE; +BARIUM for suspension 98% w/w (Vanilla Silq High Density) PO ONE; +PANT40TA2 PO; +SUCR1TAB36 PO; -TRAM50TA2 PO; +TRM50T PO
--- NOTE | 2020-03-23 11:08 | Diagnostic Imaging Report ---
INDICATION: Vomiting mucus, pain. TECHNIQUE: The preliminary chest radiograph was normal. The patient ingested effervescent crystals followed by thick and thin barium and fluoroscopic interrogation with spot radiographs in varying obliquities were performed. FINDINGS: Swallowing was normal. The esophageal distensibility and motility were normal. This patient does have a small hiatal hernia which was transient and visualized intermittently at the study. No stricture, ulcer, or mass. No mucosal irregularity. The patient was unable to swallow the barium test tablet as she could not get past the oral phase of swallowing. No findings of an esophageal stricture. The gastric mucosa below the diaphragm appeared normal. IMPRESSION: Small transient hiatal hernia. No stricture, ulcer, or mass. No documented episodes of reflux during the study. Dictated by: Dictated on workstation # [id number]
== END ==
LOC: RAD 09:17
PROVIDERS: ATTEND Internal Medicine Gastroenterology
DX: K21.9 Gastro-esophageal reflux disease without esophagitis (principal); R07.89 Other chest pain; K44.9 Diaphragmatic hernia without obstruction or gangrene
CPT/HCPCS: 74220

== ENCOUNTER 2023-09-19 12:54 | Emergency (ER) | payer MEDICARE, MEDICAID ==
[~2023-09-19] VITALS: Ht 157.4 cm; Wt 97.0 kg
[~2023-09-19 12:54] MED LIST changes: -BARIUM for suspension 96% w/w (Vanilla Silq Medium Density) PO ONE; -BARIUM for suspension 98% w/w (Vanilla Silq High Density) PO ONE
[2023-09-19] MEDS ORDERED: KETOROLAC INJ 30 MG/ML VIAL IM ONE (14:15)
[2023-09-19] MEDS ORDERED: ORPHENADRINE 60 MG/2 ML AMP (ED ONLY) IM ONE (14:15)
--- NOTE | 2023-09-19 14:36 | ED Back Pain ---
General Chief Complaint: Back Problems Stated Complaint: LOWER BACK PAIN Nursing Triage Note: PT AMB TO FT1 WITH C/O LOW BACK PAIN X1 WEEK. PT SAW PCP LAST WEEK, WAS TOLD HER HIP WAS OUT OF PLACE, HE PUT IT BACK IN PLACE, THEN THE PAIN BEGAN AGAIN 4 DAYS AGO Source of Information: Patient Exam Limitations: No Limitations History of Present Illness Date Seen by Provider: Sep 19, 2023 Time Seen by Provider: 14:23 Initial Comments 38-year-old female presents to the ER with complaint of mid lower back pain for the last week. She denies any known injury. Denies overuse injury. She states that yesterday she took ibuprofen which did not help so she took a tramadol. She denies fevers and dysuria. She reports she was seen by her primary last week for left hip pain, he adjusted her hip and was feeling better. She denies saddle paresthesia, urinary or bowel incontinence. She is able to walk. Allergies and Home Medications Allergies Coded Allergies: hydrocodone (Verified Adverse Reaction, Mild, Gastric upset, 07/07/15) Patient Home Medication List Home Medication List Reviewed: Yes Cyclobenzaprine HCl (Cyclobenzaprine HCl) 10 Mg Tablet, 10 MG PO Q8H Prescribed by: Meliza Larose on 09/19/23 1527 Pantoprazole Sodium (Protonix) 40 Mg Tablet.dr, 40 MG PO DAILY Prescribed by: EVAN BUTLER on 03/25/19 1220 Sucralfate (Carafate) 1 Gm Tablet, 1 GM PO QID Prescribed by: EVAN BUTLER on 03/25/19 1220 Review of Systems Constitutional: see HPI Past Lfhqktc-Hfcxdt-Ynjgcd Hx Patient Social History Tobacco Use?: No Use of E-Cig and/or Vaping dev: No Substance use?: No Alcohol Use?: No Pt feels they are or have been: No Immunizations Up To Date Tetanus Booster (TDap): Less than 5yrs Influenza Vaccine Up-to-Date: Yes; Up-to-Date Seasonal Allergies Seasonal Allergies: No Past Medical History Surgery/Hospitalization HX: ANXIETY SHARAD, R KNEE, ACHILES TENDON Surgeries: Yes (RT KNEE SCOPE, RT ANKLE TENDON ) Orthopedic Respiratory: No Cardiac: No Neurological: Yes Cerebral Palsy Last Menstrual Period: Aug 21, 2023 Reproductive Disorders: No Female Reproductive Disorders: Denies Sexually Transmitted Disease: No HIV/AIDS: No Genitourinary: No Gastrointestinal: No Musculoskeletal: No Endocrine: No HEENT: No Loss of Vision: Bilateral Cancer: No Psychosocial: No Integumentary: No Blood Disorders: No Adverse Reaction/Blood Tranf: No Family Medical History No Pertinent Family Hx Physical Exam Vital Signs Vital Signs - First Documented 09/19/23 13:20 Temp 36.6 Pulse 105 Resp 18 B/P (MAP) 147/83 (104) Pulse Ox 99 O2 Delivery Room Air Capillary Refill : Height, Weight, BMI Height: 5'2.00" Weight: 193lbs. 0.0oz. [id number]; 39.00 BMI Method:Stated General Appearance: No Apparent Distress, WD/WN Neck: Normal Inspection, Supple Cardiovascular: Regular Rate, Rhythm Respiratory: Lungs Clear, Normal Breath Sounds, No Accessory Muscle Use, No Respiratory Distress Back: Vertebral Tenderness (Lumbar spine) Extremity: Normal Inspection, Normal Range of Motion, Other (Equal strength bilaterally) Neurologic/Psychiatric: Alert, No Motor/Sensory Deficits, Normal Mood/Affect Skin: Normal Color, Warm/Dry Progress/Results/Core Measures Results/Orders My Orders Orders - MELIZA ESCALONA APRN Ct Lumbar Spine Wo (09/19/23 14:01) Ketorolac Injection (Ketorolac Injection (09/19/23 14:15) Orphenadrine Inj (Ed Only) (Orphenadrine (09/19/23 14:15) Medications Given in ED Current Medications Medications Dose Ordered Sig/Ilda Route Start Time Stop Time Status Last Admin Dose Admin Ketorolac Tromethamine 30 mg ONCE ONCE IM 09/19/23 14:15 09/19/23 14:16 DC 09/19/23 14:11 30 MG Orphenadrine Citrate 60 mg ONCE ONCE IM 09/19/23 14:15 09/19/23 14:16 DC 09/19/23 14:10 60 MG Vital Signs/I&O 09/19/23 09/19/23 13:20 15:34 Temp 36.6 36.6 Pulse 105 92 Resp 18 18 B/P (MAP) 147/83 (104) 141/74 Pulse Ox 99 99 O2 Delivery Room Air Room Air Blood Pressure Mean: 104 Progress Progress Note : Progress Note Patient seen and evaluated, resting comfortably in recliner, no acute distress. Based on exam and symptoms, CT lumbar spine ordered. Toradol and Norflex ordered. 1525 CT reviewed. It shows mild L5-S1 spondylosis without stenosis. It shows mild bulging disc. Alignment, no acute or chronic fracture, no significant abnormality. Results discussed with patient. Patient provided discharge instructions regarding disc herniation. Instructed to follow-up with primary care provider. Patient is stable for discharge. Discharge instructions and return precautions provided. Diagnostic Imaging Diagonstic Imaging: CT Plain Films/CT/US/NM/MRI: other (lumbar spine) Comments [facility], [place] NAME: KANDACE RUIZ [facility] REC#: [id number] PT STATUS: DEP ER : 1985 PHYSICIAN: MELIZA ESCALONA APRN ADMIT DATE: 09/19/23/ER Signed Date of Exam:09/19/23 CT LUMBAR SPINE WO PROCEDURE: CT lumbar spine without contrast. TECHNIQUE: Multiple contiguous axial images were obtained through the lumbar spine without the use of intravenous contrast. Sagittal and coronal reformations were then performed. Auto Exposure Controls were utilized during the CT exam to meet ALARA standards for radiation dose reduction. INDICATION: Back pain. FINDINGS: Lumbar statures are normal, their alignment is anatomic. There are mild degenerative changes to the L5-S1 disc which shows mild stature loss and mild circumferential bulge with no substantial canal, foraminal, or recess stenosis. No paravertebral mass, hemorrhage, or fluid collection. No fracture or acute bony destruction. Pedicles and pars were intact. The remaining discs are well hydrated and nondisplaced. Well-corticated cyst as a chronic nonaggressive finding in the left iliac bone noted. IMPRESSION: Mild L5-S1 spondylosis without stenosis. Normal alignment. No acute or chronic fracture. No significant abnormality. Dictated by: Dictated on workstation # [id number] Dict: 09/19/23 1435 Trans: 09/19/231649 AS6 [id number] Interpreted by: SAUL BELTRE Electronically signed by: SAUL BELTRE 09/19/231649 Departure Impression Primary Impression: Back pain Qualified Codes: M54.50 - Low back pain, unspecified Additional Impression: Spondylitis Qualified Codes: M46.97 - Unspecified inflammatory spondylopathy, lumbosacral region Disposition: HOME, SELF-CARE Condition: Stable Departure-Patient Inst. Decision time for Depature: 15:25 Referrals: NICOL CLAYTON DO (PCP/Family) Primary Care Physician Patient Instructions: Herniated Disc Exercises Add. Discharge Instructions: You may take 800 mg of ibuprofen every 8 hours with food as needed for pain. You may also take 1000 mg of Tylenol every 8 hours as needed for pain. Take the cyclobenzaprine every 8 hours as needed for pain. It may make you sleepy. Exercise, physical therapy, and weight loss will help. Follow-up with your primary care provider. Return for numbness or tingling in your inner groin or thighs, bowel or bladder incontinence, inability to walk, significant weakness, or any other new, concerning, or worsening symptoms. All discharge instructions reviewed with patient and/or family. Voiced understanding. Scripts Cyclobenzaprine HCl (Cyclobenzaprine HCl) 10 Mg Tablet 10 MG PO Q8H, #20 TAB 0 Refills Prov: MELIZA ESCALONA APRN 09/19/23 Copy Copies To 1: NICOL CLAYTON BRITTANY R APRN Sep 19, 2023 14:36
--- NOTE | 2023-09-19 14:45 | Diagnostic Imaging Report ---
PROCEDURE: CT lumbar spine without contrast. TECHNIQUE: Multiple contiguous axial images were obtained through the lumbar spine without the use of intravenous contrast. Sagittal and coronal reformations were then performed. Auto Exposure Controls were utilized during the CT exam to meet ALARA standards for radiation dose reduction. INDICATION: Back pain. FINDINGS: Lumbar statures are normal, their alignment is anatomic. There are mild degenerative changes to the L5-S1 disc which shows mild stature loss and mild circumferential bulge with no substantial canal, foraminal, or recess stenosis. No paravertebral mass, hemorrhage, or fluid collection. No fracture or acute bony destruction. Pedicles and pars were intact. The remaining discs are well hydrated and nondisplaced. Well-corticated cyst as a chronic nonaggressive finding in the left iliac bone noted. IMPRESSION: Mild L5-S1 spondylosis without stenosis. Normal alignment. No acute or chronic fracture. No significant abnormality. Dictated by: Dictated on workstation # [id number]
[2023-09-19] MEDS ORDERED: CYCL10TA25 PO (15:27)
[2023-09-19 15:34] VITALS: BP 141/74
== END 2023-09-19 15:34 | disposition home or self-care (01) ==
LOC: EDUNIT# 12:54 → ER 12:56
DX: M46.97 Unspecified inflammatory spondylopathy, lumbosacral region (principal)
CPT/HCPCS: 72131; 96372

== ENCOUNTER 2023-10-03 09:23 | Emergency (ER) | payer MEDICARE, MEDICAID ==
[~2023-10-03] VITALS: Ht 157 cm; Wt 99.2 kg
[~2023-10-03 09:23] MED LIST changes: +CYCL10TA25 PO
[2023-10-03 09:28] VITALS: BP 142/90
--- NOTE | 2023-10-03 09:50 | ED Abdominal Pain ---
General Chief Complaint: Abdominal/GI Problems Stated Complaint: LEFT SIDE PAIN Nursing Triage Note: ARRIVED VIA AMB WITH COMPLAINTS OF LEFT SIDED ABD PAIN THAT STARTED THIS AM. PT STATES SHE TOOK IBUPROFEN AT 0800 WITH NO RELIEF. Source of Information: Patient Exam Limitations: No Limitations History of Present Illness Date Seen by Provider: Oct 03, 2023 Time Seen by Provider: 09:33 Initial Comments Diane is a 38 year old woman who presents to the ER with complaint of left mid abdominal pain that started this morning. She denies respiratory symptoms, symptoms, nausea, vomiting, diarrhea or constipation. She denies prior episodes. She took ibuprofen 600 mg at 0800 with no improvement. She denies fever or chills. She reports pain at this time is 9/10. Stated level of pain does not match her demeanor. She has history of hiatal hernia and is post cholecystectomy. Allergies and Home Medications Allergies Coded Allergies: hydrocodone (Verified Adverse Reaction, Mild, Gastric upset, 07/07/15) Patient Home Medication List Home Medication List Reviewed: Yes Cyclobenzaprine HCl (Cyclobenzaprine HCl) 10 Mg Tablet, 10 MG PO Q8H Prescribed by: Meliza Larose on 09/19/23 1527 Pantoprazole Sodium (Protonix) 40 Mg Tablet.dr, 40 MG PO DAILY Prescribed by: EVAN BUTLER on 03/25/19 1220 Sucralfate (Carafate) 1 Gm Tablet, 1 GM PO QID Prescribed by: EVAN BUTLER on 03/25/19 1220 Review of Systems Review of Systems Constitutional: no symptoms reported EENTM: No Symptoms Reported Respiratory: No Symptoms Reported Cardiovascular: No Symptoms Reported Gastrointestinal: See HPI Genitourinary: No Symptoms Reported Musculoskeletal: no symptoms reported Skin: no symptoms reported Psychiatric/Neurological: No Symptoms Reported Endocrine: No Symptoms Reported Hematologic/Lymphatic: No Symptoms Reported Past Vajgjuw-Akpydz-Jrvdbu Hx Patient Social History Tobacco Use?: No Substance use?: No Alcohol Use?: No Immunizations Up To Date Tetanus Booster (TDap): Less than 5yrs Seasonal Allergies Seasonal Allergies: No Past Medical History Surgery/Hospitalization HX: ANXIETY SHARAD, R KNEE, ACHILES TENDON Surgeries: Yes (RT KNEE SCOPE, RT ANKLE TENDON ) Gallbladder, Orthopedic Respiratory: No Cardiac: No Neurological: Yes Cerebral Palsy Reproductive Disorders: No Female Reproductive Disorders: Denies Sexually Transmitted Disease: No HIV/AIDS: No Genitourinary: No Gastrointestinal: No Hiatal Hernia Musculoskeletal: No Endocrine: No HEENT: No Loss of Vision: Bilateral Cancer: No Psychosocial: No Integumentary: No Blood Disorders: No Adverse Reaction/Blood Tranf: No Family Medical History No Pertinent Family Hx Physical Exam Vital Signs Capillary Refill : Less Than 3 Seconds Height/Weight/BMI Height: 5'2.00" Weight: 193lbs. 0.0oz. 87.355344hc; 40.00 BMI Method:Stated General Appearance: WD/WN, no apparent distress HEENT: normal ENT inspection Neck: normal inspection Respiratory: chest non-tender, lungs clear, normal breath sounds, no respiratory distress, no accessory muscle use Cardiovascular: regular rate, rhythm, no edema, no murmur Gastrointestinal: normal bowel sounds, soft; No distended; tenderness (Left mid abdomen and ) Extremities: normal inspection Neurologic/Psychiatric: alert, normal mood/affect, oriented x 3 Skin: normal color, warm/dry Progress/Results/Core Measures Results/Orders Lab Results Laboratory Tests Test 10/03/23 09:33 10/03/23 10:00 Range/Units Urine Color YELLOW Urine Clarity CLOUDY Urine pH 5.5 5-9 Urine Specific [place] >=1.030 1.016-1.022 Urine Protein 2+ H NEGATIVE Urine Glucose (UA) NEGATIVE NEGATIVE Urine Ketones TRACE H NEGATIVE Urine Nitrite NEGATIVE NEGATIVE Urine Bilirubin NEGATIVE NEGATIVE Urine Urobilinogen 0.2 < = 1.0 MG/DL Urine Leukocyte Esterase NEGATIVE NEGATIVE Urine RBC (Auto) 1+ H NEGATIVE Urine RBC NONE /HPF Urine WBC NONE /HPF Urine Squamous Epithelial Cells 5-10 /HPF Urine Crystals PRESENT H /LPF Urine Amorphous Sediment MOD NANO URATES H /LPF Urine Bacteria NEGATIVE /HPF Urine Casts NONE /LPF Urine Mucus NEGATIVE /LPF Urine Culture Indicated NO White Blood Count 9.1 4.3-11.0 10^3/uL Red Blood Count 4.63 3.80-5.11 10^6/uL Hemoglobin 12.5 11.5-16.0 g/dL Hematocrit 41 35-52 % Mean Corpuscular Volume 88 80-99 fL Mean Corpuscular Hemoglobin 27 25-34 pg Mean Corpuscular Hemoglobin Concent 31 L 32-36 g/dL Red Cell Distribution Width 14.1 10.0-14.5 % Platelet Count 386 130-400 10^3/uL Mean Platelet Volume 9.8 9.0-12.2 fL Immature Granulocyte % (Auto) 0 % Neutrophils (%) (Auto) 64 42-75 % Lymphocytes (%) (Auto) 26 12-44 % Monocytes (%) (Auto) 7 0-12 % Eosinophils (%) (Auto) 3 0-10 % Basophils (%) (Auto) 0 0-10 % Neutrophils # (Auto) 5.8 1.8-7.8 10^3/uL Lymphocytes # (Auto) 2.4 1.0-4.0 10^3/uL Monocytes # (Auto) 0.6 0.0-1.0 10^3/uL Eosinophils # (Auto) 0.2 0.0-0.3 10^3/uL Basophils # (Auto) 0.0 0.0-0.1 10^3/uL Immature Granulocyte # (Auto) 0.0 0.0-0.1 10^3/uL Sodium Level 139 135-145 MMOL/L Potassium Level 3.7 3.6-5.0 MMOL/L Chloride Level 104 98-107 MMOL/L Carbon Dioxide Level 25 21-32 MMOL/L Anion Gap 10 5-14 MMOL/L Blood Urea Nitrogen 13 7-18 MG/DL Creatinine 0.87 0.60-1.30 MG/DL Estimat Glomerular Filtration Rate 88 BUN/Creatinine Ratio 15 Glucose Level 112 H 70-105 MG/DL Calcium Level 9.8 8.5-10.1 MG/DL Corrected Calcium 9.6 8.5-10.1 MG/DL Total Bilirubin 0.5 0.1-1.0 MG/DL Aspartate Amino Transf (AST/SGOT) 18 5-34 U/L Alanine Aminotransferase (ALT/SGPT) 19 0-55 U/L Alkaline Phosphatase 108 40-136 U/L Total Protein 7.7 6.4-8.2 GM/DL Albumin 4.3 3.2-4.5 GM/DL Lipase 20 8-78 U/L Serum Test, Qualitative NEGATIVE NEGATIVE My Orders Orders - HALLIE LUEVANO MD Ua Culture If Indicated (10/03/23 09:33) Cbc And Automated Diff (10/03/23 09:50) Comprehensive Metabolic Panel (10/03/23 09:50) Hcg,Qualitative Serum (10/03/23 09:50) Lipase (10/03/23 09:50) Ed Iv/Invasive Line Start (10/03/23 09:50) Fentanyl Injection (Fentanyl Injection (10/03/23 10:00) Chest Pa/Lat (2 View) (10/03/23 11:49) Abdomen, Flat & Upright/Decub (10/03/23 11:49) 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 She has requested medications for pain and states she cannot swallow pills of any kind. Fentanyl was ordered for pain management as she rates her pain 9/10. Labs have been ordered for further assessment. Assessment by physical examination of the area of focus is very limited due to obese abdomen limiting palpation of underlying structures such as the costal margin. We will assess further after review of labs and urinalysis. Progress Note #2: Progress Note Labs were interpreted by me. CBC, CMP, Lipase, and serum hcg were all clinically unremarkable. 2-view abdominal films and 2-view chest x-ray reports were reviewed as below. Note was made of hiatal hernia. Pain has been treated with Fentanyl and did not worsen again after Fentanyl had time to wear off. Patient did not want to try GI cocktail. See discharge instructions for further discussion. Diagnostic Imaging Diagonstic Imaging: Xray Plain Films/CT/US/NM/MRI: abdomen, pelvis Comments NAME: DIANE RUZI [facility] REC#: [id number] PT STATUS: REG ER : 1985 PHYSICIAN: HALLIE LUEVANO MD ADMIT DATE: 10/03/23/ER Signed Date of Exam:10/03/23 ABDOMEN, FLAT & UPRIGHT/DECUB ABDOMEN, FLAT UPRIGHT/DECUB INDICATION: Abdominal pain COMPARISON: None available. TECHNIQUE: Upright and supine AP view of the abdomen FINDINGS: Nonobstructive bowel gas pattern. No free intraperitoneal air. A small amount of stool is present in the right hemicolon. Cholecystectomy clips are noted. Normal regional skeleton. Lung bases are clear. IMPRESSION: No radiographic abnormality to account for patient's abdominal pain. Dictated by: Dictated on workstation # [id number] Dict: 10/03/23 1227 Trans: 10/03/23 1229 [facility] [id number] Interpreted by: MIRTA LOPEZ MD Electronically signed by: MIRTA LOPEZ MD 10/03/239 Diagonstic Imaging: Xray Plain Films/CT/US/NM/MRI: chest Comments NAME: DIANE RUIZ [facility] REC#: [id number] PT STATUS: REG ER : 1985 PHYSICIAN: HALLIE LUEVANO MD ADMIT DATE: 10/03/23/ER Draft Date of Exam:10/03/23 CHEST PA/LAT (2 VIEW) EXAMINATION: PA and lateral chest at 12:05 p.m. INDICATION: Left-sided chest pain. COMPARISON: None. FINDINGS: The heart size is within normal limits. The lungs are clear. There is no evidence for failure, pneumonia or for a pleural effusion. The mediastinum is not widened. As noted on the previous barium swallow exam of 03/23/2020, there is a hiatal hernia. The osseous structures are intact. IMPRESSION: There is no evidence for active disease. Dictated on workstation # [id number] Dict: 10/03/232 Trans: 10/03/238 [facility] [id number] Interpreted by: GO JUAREZ MD Departure Impression Primary Impression: Left upper quadrant pain Additional Impression: Hiatal hernia Disposition: 01 HOME, SELF-CARE Condition: Improved Departure-Patient Inst. Decision time for Depature: 12:47 Referrals: NICOL CLAYTON DO (PCP/Family) Primary Care Physician Patient Instructions: Hiatal hernia, Abdominal pain Add. Discharge Instructions: Continue your medications as previously prescribed. If you have recurrence of the abdominal pain, you may try adding an additional antiacid medication to the Dexilant you are currently taking. You may try Pepcid (famotidine) 20 mg twice daily. Drink plenty of noncarbonated clear liquids to stay well-hydrated. It is especially important to drink water throughout your meals to help wash your food down and aid in digestion. Avoid the following: Eating large meals, eating close to bedtime, caffeine, carbonation, chocolate, citrus fruits and juices, mints, fatty/greasy foods, NSAID medications such as ibuprofen or naproxen, alcohol, tobacco, and anything else you know irritate your stomach. Avoid wearing tight fitting close around your waist and work toward weight loss to help reduce pressure on your stomach and hiatal hernia. You may take Tylenol (acetaminophen) up to 1000 mg every 6 hours as needed for pain. Add Tums or generic equivalent for additional pain relief if needed. Avoid using NSAID medications for pain control. Follow-up with your primary care provider as soon as possible. Return to the emergency room if you have worsening symptoms despite following these instructions. All discharge instructions reviewed with patient and/or family. Voiced understanding. Copy Copies To 1: NICOL CLAYTON JOSHUA T MD Oct 03, 2023 09:50
[2023-10-03 09:52] LABS: CLARITY,URINE CLOUDY; COLOR,URINE YELLOW; GLUCOSE, URINE (UA) NEGATIVE (NEGATIVE); PH,URINE 5.5 (5-9); PROTEIN,URINE 2+ (NEGATIVE)
[2023-10-03 09:53] LABS: AMORPHOUS SEDIMENT,UR MOD AMOR URATES /LPF; BACTERIA,URINE NEGATIVE /HPF; BILIRUBIN,URINE NEGATIVE (NEGATIVE); KETONES,URINE TRACE (NEGATIVE); LEUKOCYTE ESTERASE ,URINE NEGATIVE (NEGATIVE); NITRITE,URINE NEGATIVE (NEGATIVE)
[2023-10-03] MEDS ORDERED: fentaNYL INJECTION 100 MCG/2 ML VIAL IVP ONE (10:00)
[2023-10-03 10:08] LABS: BASOPHILS % (AUTO) 0 % (0-10); EOSINOPHILS # (AUTO) 0.2 10^3/uL (0.0-0.3); EOSINOPHILS % (AUTO) 3 % (0-10); HEMATOCRIT 41 % (35-52); HEMOGLOBIN 12.5 g/dL (11.5-16.0); LYMPHOCYTES # (AUTO) 2.4 10^3/uL (1.0-4.0); LYMPHOCYTES % (AUTO) 26 % (12-44); MEAN CORPUSCULAR HEMOGLOBIN 27 pg (25-34); MEAN CORPUSCULAR HGB CONC 31 g/dL (32-36); MEAN CORPUSCULAR VOLUME 88 fL (80-99); MEAN PLATELET VOLUME 9.8 fL (9.0-12.2); MONOCYTES # (AUTO) 0.6 10^3/uL (0.0-1.0); MONOCYTES % (AUTO) 7 % (0-12); NEUTROPHILS # (AUTO) 5.8 10^3/uL (1.8-7.8); NEUTROPHILS % (AUTO) 64 % (42-75); PLATELET COUNT 386 10^3/uL (130-400); WHITE BLOOD COUNT 9.1 10^3/uL (4.3-11.0)
[2023-10-03 10:16] LABS: ALBUMIN 4.3 GM/DL (3.2-4.5); POTASSIUM 3.7 MMOL/L (3.6-5.0)
[2023-10-03 10:18] LABS: CALCIUM 9.8 MG/DL (8.5-10.1)
[2023-10-03 10:19] LABS: TOTAL PROTEIN 7.7 GM/DL (6.4-8.2)
[2023-10-03 10:20] LABS: BILIRUBIN,TOTAL 0.5 MG/DL (0.1-1.0)
[2023-10-03 10:22] LABS: CREATININE SERUM 0.87 MG/DL (0.60-1.30)
--- NOTE | 2023-10-03 12:28 | Diagnostic Imaging Report ---
EXAMINATION: PA and lateral chest at 12:05 p.m. INDICATION: Left-sided chest pain. COMPARISON: None. FINDINGS: The heart size is within normal limits. The lungs are clear. There is no evidence for failure, pneumonia or for a pleural effusion. The mediastinum is not widened. As noted on the previous barium swallow exam of 03/23/2020, there is a hiatal hernia. The osseous structures are intact. IMPRESSION: There is no evidence for active disease. Dictated by: Dictated on workstation # [id number]
--- NOTE | 2023-10-03 12:30 | Diagnostic Imaging Report ---
ABDOMEN, FLAT UPRIGHT/DECUB INDICATION: Abdominal pain COMPARISON: None available. TECHNIQUE: Upright and supine AP view of the abdomen FINDINGS: Nonobstructive bowel gas pattern. No free intraperitoneal air. A small amount of stool is present in the right hemicolon. Cholecystectomy clips are noted. Normal regional skeleton. Lung bases are clear. IMPRESSION: No radiographic abnormality to account for patient's abdominal pain. Dictated by: Dictated on workstation # [id number]
== END 2023-10-03 12:57 | disposition home or self-care (01) ==
LOC: EDUNIT# 09:23 → ER 09:26
DX: K44.9 Diaphragmatic hernia without obstruction or gangrene (principal); Z90.49 Acquired absence of other specified parts of digestive tract; Z88.5 Allergy status to narcotic agent
CPT/HCPCS: 36415; 71046; 74019; 80053; 81000; 83690; 84703; 85025; 96374